=== PATIENT | female | born 1950 | race Caucasian/White ===

== ENCOUNTER → 2021-06-07 | Outpatient (CLI) | payer MEDICARE, OTHER ==
[~2021-06-07] MED LIST: ASACOL HD800 MG PO; BIOTIN5000 MCG PO; CRESTOR5 MG PO; DEPAKOTE ER 25250 MG PO; ELMIRON 10100 MG/CA1 PO; LEVOXYL0.125 MG PO; MYSOLINE 250MG250 MG PO; PRILOSEC 20MG20 MG PO; RELAFEN 50500 MG/TAB PO; RT ADVAIR 128 DISKUS IH; SYNTHROID0.2 MG/TAB PO; TYLENOL 325MG325 MG PO; VENTOLIN0.09 MG IH; WELCHOL 625MG625 MG PO; ZANTAC 150MG T150 MG PO; ZYLOPRIM 100MG100 MG PO
== END ==
LOC: COL.CARD 04-26 10:00
DX: G47.10 Hypersomnia, unspecified (principal)